=== PATIENT | female | born 1950 | race African-American/Black ===

== ENCOUNTER 2018-09-04 15:13 | Inpatient (IN) | payer MEDICARE, OTHER ==
[~2018-09-04] VITALS: Ht 154.9 cm; Wt 95.6 kg
[~2018-09-04 15:13] MED LIST: 00186-0370-20 IH; ALTACE10 MG PO; AMLODIPINE10 MG PO; APRESOLINE 25MG25 MG PO; ASPIRIN E.C. 8181 MG PO; BENTYL 20MG20 MG/TAB PO; BRILINTA90 MG PO; CALCIUM + D 6001 TA1 PO; CARISOPRODOL350 MG PO; CATAPRES0.2 MG PO; COUMADIN 5MG5 MG/TAB PO; DUO-KAPS1 CAP PO; ELIQUIS 5MG PO; EPA/GLA1 SGL PO; FENTANYL 25 MCG TD; FENTANYL 50MCG TP; FERROUS SU325 MG/TAB PO; FISH OIL 1000MG1 CAP PO; FLEXERIL5 MG PO; FOLIC ACID 11 MG/TA1 PO; FOLIC ACID0.8 MG PO; FOLIC ACID1 MG PO; FOLIC ACID800 MCG PO; FORT1000TA PO; GLUCOPHAGE500 MG/TAB PO; HCTZ 25MG25 MG PO; HYDROXYURE500 MG/CAP PO; HYDROXYUREA500 MG PO; IMDUR 60MG60 MG/TAB PO; K-PHOS ORIGINA500 MG PO; KEPPRA750 MG PO; LASIX 20MG TABL20 MG PO; LORATADINE10 MG PO; LOW DOSE ASPIRI81 MG PO; MAGNESIUM250 M1 PO; METFORMIN1000 MG PO; METOPROLOL SUCC25 M1 PO; MIRALAX PA17 GM/Dose PO; MIRALAX17 GM/DOSE PO; MOBIC15 MG PO; MORPHINE SULFAT30 M5 PO; MS CONTIN 115 MG/TAB PO; MS CONTIN 330 MG/TAB PO; MSIR30 MG PO; MULTI VITAMINS1 TAB PO; MULTIVITAMIN1 TA1 PO; NITROSTAT0.4 MG/TAB SL; NORVASC 10MG10 MG PO; NORVASC 5MG5 MG/TAB PO; OSCAL 500 TAB500 MG PO; PERCOCET 325 MG1 TA2 PO; PLAVIX 75MG TAB75 MG PO; POLYETHYLENE GL; POTASSIUM; POTASSIUM PO; PRAVACHOL 40MG40 MG PO; PRILOSEC 20MG20 MG PO; PRINIVIL20 MG PO; PRINIVIL40 MG PO; PROAIR HFA0.09 MG/AC IH; PROVENTIL0.09 MG/A1 IH; RAMIPRIL10 MG PO; REGLAN 10MG10 MG/TAB PO; ROXICODONE 55 MG/TAB PO; RT SPIRIVA18 MCG IH; TOPROL XL100 MG PO; ULTRAM 50MG TAB50 MG PO; ZANAFLEX CAPSULE4 MG PO; ZANTAC 150MG T150 MG PO; ZOFRAN 4MG T4 MG/TAB PO
[2018-09-04 16:09] LABS: MEAN CELL VOLUME 87 fl (80.0-100.0); MEAN CORPUSCULAR HGB CONC 33 g/dl (33.0-37.0); MEAN PLATELET VOLUME 10.4 fl (7.4-10.4); PLATELET COUNT 363 K/mm3 (130-400); RED BLOOD COUNT 2.83 M/mm3 (4.10-5.30); REDCELL DISTRIBUTION WIDTH-CV 15.7 % (11.5-14.5)
[2018-09-04 16:19] LABS: ALBUMIN 3.8 gm/dL (3.5-5.0); BILIRUBIN,TOTAL 0.3 mg/dL (0.0-1.0); CALCIUM 8.7 mg/dL (8.4-10.2); POTASSIUM 4.7 mmol/L (3.4-5.0); TOTAL PROTEIN 7.7 gm/dL (6.4-8.2)
[2018-09-04 16:23] LABS: HEMATOCRIT 24.7 % (37.0-47.0); HEMOGLOBIN 8.2 g/dl (12.5-16.0); MEAN CORPUSCULAR HEMOGLOBIN 29 pg (27.0-31.0)
[2018-09-04 16:28] LABS: CREATININE, serum 5.79 mg/dL (0.52-1.25)
[2018-09-04 16:34] LABS: PROTHROMBIN TIME 57.3 SECONDS (9.7-12.8)
[2018-09-04 16:46] VITALS: BP 101/59; PULSE 64; TEMP 98.3
[2018-09-04] MEDS ORDERED: TYLENOL 325MG325 MG PO (18:19)
[2018-09-04] MEDS ORDERED: NORVASC 10MG10 MG PO (18:20)
[2018-09-04] MEDS ORDERED: COREG 6.256.25 MG/TA PO (18:22)
[2018-09-04] MEDS ORDERED: CIPRO 250MG TA250 MG PO (18:23)
[2018-09-04] MEDS ORDERED: VOLTAREN GEL 1%1 TU TP (18:24)
[2018-09-04] MEDS ORDERED: CELEXA 20MG20 MG/TAB PO (18:24)
[2018-09-04] MEDS ORDERED: PEPCID 20MG TAB20 MG PO (18:26)
[2018-09-04] MEDS ORDERED: APRESOLINE 25MG25 MG PO (18:28)
[2018-09-04] MEDS ORDERED: KEPPRA750 MG PO (18:29)
[2018-09-04] MEDS ORDERED: ANTI-DIARRHEAL2 MG PO (18:30)
[2018-09-04] MEDS ORDERED: FLAGYL500 MG PO (18:32)
[2018-09-04] MEDS ORDERED: MYRBETR25MG PO (18:34)
[2018-09-04] MEDS ORDERED: OXAYDO7.5 MG PO (18:37)
[2018-09-04] MEDS ORDERED: DAZIDOX10 MG PO (18:38)
[2018-09-04 21:38] VITALS: BP 111/58; PULSE 74; TEMP 98.7
[2018-09-04 23:55] VITALS: BP 98/53; PULSE 79
[2018-09-05] VITALS (10 sets, daily range): BP systolic 96–149; BP diastolic 45–83; PULSE 76–97; TEMP 98.6–99.9
[2018-09-05 06:47] LABS: ALBUMIN 3.5 gm/dL (3.5-5.0); CALCIUM 8.3 mg/dL (8.4-10.2); INR 5.4 (0.8-3.0); MAGNESIUM 1.7 mg/dL (1.6-2.3); PHOSPHOROUS 5.7 mg/dL (2.5-4.5); POTASSIUM 3.9 mmol/L (3.4-5.0)
[2018-09-05 06:57] LABS: BASO % 0.1 % (0.0-2.0); EOS % 0.6 % (0-4.0); GRAN # 4.8 (1.4-6.5); GRAN % 71.6 % (42.2-75.2); LYMPH # 1.4 (1.2-3.4); MEAN CELL VOLUME 85 fl (80.0-100.0); MEAN CORPUSCULAR HGB CONC 34 g/dl (33.0-37.0); MEAN PLATELET VOLUME 10.2 fl (7.4-10.4); MONO # 0.4 (0.1-0.6); MONO % 5.7 % (1.7-9.3); PLATELET COUNT 359 K/mm3 (130-400); RED BLOOD COUNT 2.57 M/mm3 (4.10-5.30)
[2018-09-05 06:59] LABS: HEMATOCRIT 21.9 % (37.0-47.0); HEMOGLOBIN 7.5 g/dl (12.5-16.0); MEAN CORPUSCULAR HEMOGLOBIN 29 pg (27.0-31.0)
[2018-09-05 07:15] LABS: CREATININE, serum 4.37 mg/dL (0.52-1.25)
[2018-09-05 11:18] LABS: RETIC # 0.04 M/mm3 (0.02-0.16); RETIC % 1.5 % (0.5-3.52)
[2018-09-06 03:41] VITALS: BP 152/86; PULSE 72
[2018-09-06 06:00] LABS: BASO % 0.3 % (0.0-2.0); EOS # 0.1 (0.0-0.7); EOS % 0.8 % (0-4.0); GRAN % 66.1 % (42.2-75.2); LYMPH # 1.4 (1.2-3.4); LYMPH % 23.7 % (20.0-51.0); MEAN CELL VOLUME 85 fl (80.0-100.0); MEAN CORPUSCULAR HGB CONC 33 g/dl (33.0-37.0); MEAN PLATELET VOLUME 10.4 fl (7.4-10.4); MONO # 0.5 (0.1-0.6); MONO % 8.4 % (1.7-9.3); PLATELET COUNT 404 K/mm3 (130-400); RED BLOOD COUNT 3.48 M/mm3 (4.10-5.30); REDCELL DISTRIBUTION WIDTH-CV 16.1 % (11.5-14.5)
[2018-09-06 06:05] LABS: HEMATOCRIT 29.4 % (37.0-47.0); HEMOGLOBIN 9.8 g/dl (12.5-16.0); MEAN CORPUSCULAR HEMOGLOBIN 28 pg (27.0-31.0)
[2018-09-06 06:06] LABS: ALBUMIN 4.1 gm/dL (3.5-5.0); CALCIUM 9.1 mg/dL (8.4-10.2); CREATININE, serum 2.81 mg/dL (0.52-1.25); PHOSPHOROUS 3.9 mg/dL (2.5-4.5); POTASSIUM 3.8 mmol/L (3.4-5.0)
[2018-09-06 07:59] VITALS: BP 146/88; PULSE 85; TEMP 98.6
[2018-09-06 11:17] VITALS: BP 154/92; PULSE 73; TEMP 98.7
[2018-09-06 12:50] LABS: INR 5.6 (0.8-3.0); PROTHROMBIN TIME 63.4 SECONDS (9.7-12.8)
== END 2018-09-06 15:15 | disposition home or self-care (01) | DRG 683 ==
LOC: MEDICAL 15:13
PROVIDERS: Internal Medicine Nephrology
DX: N17.9 Acute kidney failure, unspecified (principal); N39.0 Urinary tract infection, site not specified; D68.9 Coagulation defect, unspecified; I12.9 Hypertensive chronic kidney disease with stage 1 through stage 4 chronic kidney disease, or unspecified chronic kidney disease; E11.22 Type 2 diabetes mellitus with diabetic chronic kidney disease; N18.1 Chronic kidney disease, stage 1; E66.9 Obesity, unspecified; I25.10 Atherosclerotic heart disease of native coronary artery without angina pectoris; D57.1 Sickle-cell disease without crisis; E78.5 Hyperlipidemia, unspecified; I69.311 Memory deficit following cerebral infarction; Z68.39 Body mass index [BMI] 39.0-39.9, adult; Z95.5 Presence of coronary angioplasty implant and graft; Z79.01 Long term (current) use of anticoagulants; Z87.891 Personal history of nicotine dependence
CPT/HCPCS: J7030; P9016

== ENCOUNTER 2021-03-10 09:26 | Day surgery (SDC) | payer MEDICARE, OTHER ==
[2021-03-10] VITALS (12 sets, daily range): BP systolic 142–180; BP diastolic 80–106; PULSE 64–72; TEMP 98
[~2021-03-10] VITALS: Ht 155 cm; Wt 105.3 kg
[~2021-03-10 09:26] MED LIST changes: +ANTI-DIARRHEAL2 MG PO; +CELEXA 20MG20 MG/TAB PO; +CIPRO 250MG TA250 MG PO; +COREG 6.256.25 MG/TA PO; +DAZIDOX10 MG PO; +FLAGYL500 MG PO; +MYRBETR25MG PO; +OXAYDO7.5 MG PO; +PEPCID 20MG TAB20 MG PO; +TYLENOL 325MG325 MG PO; +VOLTAREN GEL 1%1 TU TP
[2021-03-10 10:44] LABS: HEMATOCRIT 31.4 % (37.0-47.0); HEMOGLOBIN 10.2 g/dl (12.5-16.0); MEAN CELL VOLUME 89 fl (80.0-100.0); MEAN CORPUSCULAR HEMOGLOBIN 29 pg (27.0-31.0); MEAN CORPUSCULAR HGB CONC 33 g/dl (33.0-37.0); MEAN PLATELET VOLUME 11.6 fl (7.4-10.4); PLATELET COUNT 245 K/mm3 (130-400); RED BLOOD COUNT 3.54 M/mm3 (4.10-5.30); REDCELL DISTRIBUTION WIDTH-CV 16.8 % (11.5-14.5)
[2021-03-10 10:50] LABS: INR 2.5 (0.8-3.0); PROTHROMBIN TIME 27.6 SECONDS (9.7-12.8)
[2021-03-10 10:52] LABS: PARTIAL THROMBOPLASTIN TIME 50.4 SECONDS (26.0-37.0)
[2021-03-10 10:54] LABS: CREATININE, serum 0.89 (0.52-1.25)
[2021-03-10 10:57] LABS: POTASSIUM 2.9 mmol/L (3.4-5.0)
[2021-03-10] MEDS ORDERED: ISOSORBIDE MON120 MG PO (11:11)
[2021-03-10] MEDS ORDERED: NORVASC 5MG5 MG/TAB PO (11:11)
[2021-03-10] MEDS ORDERED: CELEXA 20MG20 MG/TAB PO (11:11)
[2021-03-10] MEDS ORDERED: FENTANYL 50MCG TD (11:12)
[2021-03-10] MEDS ORDERED: HCTZ 25MG TAB25 MG PO (11:12)
[2021-03-10] MEDS ORDERED: HYDROXYURE500 MG/CAP PO (11:12)
[2021-03-10] MEDS ORDERED: NITROSTAT0.4 MG/TAB SL (11:13)
[2021-03-10] MEDS ORDERED: SYNTHROID0.05 MG/TA PO (11:13)
[2021-03-10] MEDS ORDERED: KEPPRA 500MG500 MG PO (11:13)
[2021-03-10] MEDS ORDERED: ROXICODONE 55 MG/TAB PO (11:14)
[2021-03-10] MEDS ORDERED: PRAVACHOL80 MG PO (11:14)
[2021-03-10] MEDS ORDERED: PRILOSEC 20MG20 MG PO (11:14)
[2021-03-10] MEDS ORDERED: LIORESAL 1010 MG/TAB PO (11:15)
[2021-03-10] MEDS ORDERED: ASPIRIN E.C. 8181 MG PO (11:16)
[2021-03-10] MEDS ORDERED: COUMADIN 6MG6 MG/TAB PO (11:16)
[2021-03-10] MEDS ORDERED: EPA FISH OIL1 SGL PO (11:16)
[2021-03-10] MEDS ORDERED: ONE-A-DAY ESSE1 EACH PO (11:19)
[2021-03-10] MEDS ORDERED: FOLIC ACID0.4 MG PO (11:19)
[2021-03-10] MEDS ORDERED: BIOTIN5000 MCG PO (11:20)
[2021-03-10] MEDS ORDERED: PHARMASSURE MA500 MG PO (11:20)
[2021-03-10] MEDS ORDERED: KLOR-CON 1010 MEQ PO (11:21)
[2021-03-10] MEDS ORDERED: LASIX 20MG TABL20 MG PO (11:21)
[2021-03-10] MEDS ORDERED: VOLTAREN GEL 1%1 TU TP (11:21)
--- NOTE | 2021-03-10 14:22 | NUR ---
Bedside report recieved from NIGEL Xie. He had assisted pt to bedpan and changed dressing to rt femoral puncture site prior to handoff. Pt resting comfortably. Denies needs at this time. Call light in reach. at bedside.
--- NOTE | 2021-03-10 15:15 | NUR ---
Rojas, director of laboratory operations RN notified that dressing to rt groin has become saturated again from slow tract oozing. Marisa creative technologist in to change dressing and apply pressure device.
--- NOTE | 2021-03-10 15:30 | NUR ---
Verified by phone with Dr. Grimes that pt may discharge after 2 hr bedrest time. Pt informed that time may be extended due to initial oozing from femoral puncture site, elevated BP and INR.
--- NOTE | 2021-03-10 18:15 | NUR ---
Air has been removed from TR band in 2ml increments with no bleeding or complication. Rt radial puncture site covered with 2x2 gauze and bandaid. Pressure device was removed from rt femoral puncture site, new dressing of 4x4 and tegaderm applied. Both areas remains soft to palpation. DC instructions reviewed with pt and , both express understanding. Pt is sitting up on edge of bed eating dinner, she will call staff when she is ready to get dressed and discharge.
--- NOTE | 2021-03-10 18:40 | NUR ---
Pt taken to 's car by wheelchair with personal belongings.
== END 2021-03-10 19:17 | disposition home or self-care (01) ==
LOC: COL.CAR 09:26
PROVIDERS: Internal Medicine Interventional Cardiology
DX: I25.119 Atherosclerotic heart disease of native coronary artery with unspecified angina pectoris (principal); I10 Essential (primary) hypertension; R60.0 Localized edema; Z79.01 Long term (current) use of anticoagulants; Z79.891 Long term (current) use of opiate analgesic; Z79.82 Long term (current) use of aspirin; Z79.890 Hormone replacement therapy; Z20.822 Contact with and (suspected) exposure to COVID-19; Z86.73 Personal history of transient ischemic attack (TIA), and cerebral infarction without residual deficits; Z95.0 Presence of cardiac pacemaker; Z87.891 Personal history of nicotine dependence; Z88.8 Allergy status to other drugs, medicaments and biological substances
CPT/HCPCS: C1760; C1769; C1887; C1894; J0360; J1644; J2250; J3010

== ENCOUNTER → 2022-04-03 | Outpatient (CLI) | payer MEDICARE, OTHER ==
[~2022-04-03] MED LIST changes: +BIOTIN5000 MCG PO; +COUMADIN 6MG6 MG/TAB PO; +EPA FISH OIL1 SGL PO; +FENTANYL 50MCG TD; +FOLIC ACID0.4 MG PO; +HCTZ 25MG TAB25 MG PO; +ISOSORBIDE MON120 MG PO; +KEPPRA 500MG500 MG PO; +KLOR-CON 1010 MEQ PO; +LIORESAL 1010 MG/TAB PO; +ONE-A-DAY ESSE1 EACH PO; +PHARMASSURE MA500 MG PO; +PRAVACHOL80 MG PO; +SYNTHROID0.05 MG/TA PO
[2022-04-03 18:41] LABS: ANION GAP 13 mmol/L (7-16); BLOOD UREA NITROGEN 12 mg/dL (10-20); C-REACTIVE PROTEIN 0.78 mg/dL (0.00-0.50); CALCIUM 9.3 mg/dL (8.4-10.2); CARBON DIOXIDE 27 mmol/L (23-31); CHLORIDE 104 mmol/L (98-107); CREATININE, serum 0.83 mg/dL (0.57-1.11); GLUCOSE 92 mg/dL (70-99); POTASSIUM 3.4 mmol/L (3.5-4.5); SODIUM 144 mmol/L (136-145); THYROID STIMULATING HORMONE 2.565 uIU/mL (0.350-4.940); TROPONIN-I < 0.010 ng/mL (0.00-0.033)
== END ==
LOC: ZCOL.LAB 17:41
PROVIDERS: Nurse Practitioner
DX: R07.9 Chest pain, unspecified (principal)

== ENCOUNTER → 2022-04-05 | Outpatient (CLI) | payer MEDICARE, OTHER | LOC: COL.RAD 13:21 | DX: H93.299 Other abnormal auditory perceptions, unspecified ear (principal); R06.02 Shortness of breath; R07.9 Chest pain, unspecified; R79.1 Abnormal coagulation profile | CPT/HCPCS: Q9967 ==